=== PATIENT | male | born 1940 | race Caucasian/White ===

== ENCOUNTER 2021-05-15 15:48 | Outpatient (CLI) | payer MEDICARE, SELFPAY ==
[2021-05-15 16:08] LABS: Hematocrit 38.5 % (37.0-46.0); Hemoglobin 12.9 g/dL (12.4-15.3); Mean Corpuscular HGB Conc 33.5 g/dL (32.0-36.0); Mean Corpuscular Volume 92.5 fL (78.0-102.0); Mean Platelet Volume 9.7 fl (8.7-11.0); Platelet Count Result 206 K/mm3 (150-420); Red Blood Count 4.16 M/mm3 (4.70-6.10); Red Cell Distribution Width 12.9 % (11.6-14.4); White Blood Count 9.3 K/mm3 (4.8-10.8)
[2021-05-15 16:46] LABS: Alanine Aminotransferase 31 U/L (16-63); Albumin Level 4.2 g/dL (3.4-5.0); Alkaline Phosphatase 79 U/L (46-116); Anion Gap 12 mmol/L (8-16); Aspartate Amino Transferase 17 U/L (15-37); Bilirubin,Total 0.3 mg/dL (0.00-1.00); Blood Urea Nitrogen 46 mg/dL (7-18); Calcium 9.4 mg/dL (8.5-10.1); Carbon Dioxide 24 mmol/L (21-32); Chloride 106 mmol/L (98-108); Cholesterol 248 mg/dL (0-200); Estimated Glomerular Filt Rate 44; Glucose 114 mg/dL (70-99); HDL Direct 39 mg/dL (40-60); LDL Cholesterol Calculated 151 mg/dL (<130); Osmolality Calculated 306 mOsm/kg (285-295); Potassium 4.4 mmol/L (3.5-5.1); Prostate Specific Antigen 4.8 ng/mL (< OR = 4.0); Sodium 142 mmol/L (136-145); Total Protein 6.9 g/dL (6.4-8.2); Triglycerides 291 mg/dL (0-150)
== END 2021-05-15 15:49 | disposition home or self-care (01) ==
LOC: CHSLAB 15:55
PROVIDERS: PCP Family Medicine; Visit Provider Family Medicine
DX: E11.9 Type 2 diabetes mellitus without complications (principal); I10 Essential (primary) hypertension; R35.1 Nocturia
CPT/HCPCS: 36415; 80053; 80061; 83036; 84153; 85027; G0103

== ENCOUNTER 2023-11-20 11:46 | Outpatient (NON) | payer MEDICARE, SELFPAY ==
[2023-11-20 12:11] LABS: Appearance Urine Cloudy (Clear); Bilirubin Urine Negative (Negative); Blood Urine 3+ (Negative); Color Urine Yellow (Yellow); Glucose Urine UA Negative (Negative); Ketones Urine Negative (Negative); Leukocyte Esterase Ur Trace (Negative); Nitrate Urine Negative (Negative); Protein Urine 3+ (Negative); Specific Grav Ur >= 1.030 (1.010-1.020); Urobilinogen Urine 0.2 mg/dL (0.2-1.0)
[2023-11-20 12:18] LABS: Add Urine Microscopic? YES
[2023-11-20 12:19] LABS: Bacteria Urine 1+ /hpf; RBC Urine 51-75 /hpf (0-2); Squamous Epithelial Cell Urine Rare /hpf (Few); WBC Urine 0-3 /hpf (0-3)
== END 2023-11-20 11:47 | disposition home or self-care (01) ==
PROVIDERS: Visit Provider Nurse Practitioner Family
DX: R39.9 Unspecified symptoms and signs involving the genitourinary system (principal)
CPT/HCPCS: 81001; 87086

== ENCOUNTER 2023-11-25 12:42 | Outpatient (CLI) | payer MEDICARE, SELFPAY ==
--- NOTE | ~2023-11-25 | CT_ITS ---
Non-contrast CT scan of the Abdomen and Pelvis Clinical indication: Kidney stones Technique: 2.5 mm axial scans were obtained through the abdomen and pelvis without intravenous or or al contrast. Dose reduction technique was used on this scan by utilizing automated exposure control a nd iterative reconstruction technique. The dose-length product (DLP) was 500.11 mGy-cm. Findings: Images through the lung bases reveal 5 mm right middle lobe pulmonary nodule. There is no evidence of renal or ureteral calculi. The kidneys and the ureters are nondilated. Left r enal cyst present. The liver, spleen, pancreas, gallbladder, and adrenals appear normal. There are atherosclerotic calci fications of the aorta. There is no evidence of bowel obstruction. Images through the pelvis were performed. There is no evidence of ascites or lymphadenopathy. Numerou s layering urinary bladder stones are present. Prostate gland is enlarged. Small fat-containing right -sided inguinal hernia noted. Impression: Numerous urinary bladder stones. No renal or ureteral stone. No hydronephrosis. Enlarged prostate gland. Small fat-containing right inguinal hernia. Reviewed, dictated and finalized at location . Impression: Numerous urinary bladder stones. No renal or ureteral stone. No hydronephrosis. Enlarged prostate gland. Small fat-containing right inguinal hernia.
== END 2023-11-25 12:43 | disposition home or self-care (01) ==
LOC: CHSIMG 12:44
PROVIDERS: PCP Family Medicine; Visit Provider Nurse Practitioner Family
DX: N20.0 Calculus of kidney (principal); R39.9 Unspecified symptoms and signs involving the genitourinary system; N21.0 Calculus in bladder; N40.0 Benign prostatic hyperplasia without lower urinary tract symptoms; K40.90 Unilateral inguinal hernia, without obstruction or gangrene, not specified as recurrent
CPT/HCPCS: 74176

== ENCOUNTER 2024-01-02 09:10 | Emergency (ER) | payer MEDICARE, SELFPAY ==
[2024-01-02 09:10] VITALS: BP 152/67; PULSE 94; RESP 16; TEMP 36.7; O2SAT 95
--- NOTE | 2024-01-02 09:29 | ED.MALEGU ---
HPI - Male Genitourinary General Chief complaint: Urogenital-Male Stated complaint: urinary symptoms Time Seen by Provider: 01/02/24 09:19 Source: patient Mode of arrival: ambulatory Limitations: no limitations History of Present Illness HPI Narrative: 83-year-old male with a history of hypertension, dyslipidemia, diabetes mellitus, CKD, BPH, passage of a kidney stone on 11/19/2023 presents to the ER with a 3 day history of -- dysuria without any hematuria. he had similar stones after passing a kidney stone -- Lack of good urinary stream. The patient is dribbling urine. In addition he has received precipitancy, hesitancy and increased frequency of micturition. no fever or chills. No back pain. No abdominal pain. the patient had a CT of the abdomen and pelvis on 11/26/2023 which revealed multiple bladder stones with prostate enlargement. MD Complaint: dysuria Onset (ago): day(s) ( Three days) Duration: intermittent Quality: burning Relieving factors: none Exacerbating factors: none Associated symptoms: Reports denies other symptoms Related Data Allergies Allergy/AdvReac Type Severity Reaction Status Date / Time No Known Allergies Allergy Mild Verified 01/02/24 09:15 Review of Systems Review of Systems: All systems reviewed & are unremarkable except as noted in HPI and below Constitutional: Constitutional: Reports as per HPI and Reports no additional constitutional complaints Eyes: Eyes: Reports as per HPI and Reports no additional eye complaints ENT: Reports system reviewed and no additional complaints, except as documented and Reports as per HPI Cardiovascular: Cardiovascular: Reports as per HPI and Reports no additional cardiovascular complaints Respiratory: Respiratory: Reports as per HPI and Reports no additional respiratory complaints Gastrointestinal: Gastrointestinal: Reports as per HPI and Reports no additional gastrointestinal complaints Genitourinary: Genitourinary: Reports no additional male genitourinary complaints, Reports dysuria, Reports urinary frequency and Reports urinary incontinence Musculoskeletal: Musculoskeletal: Reports no additional musculoskeletal complaints and Reports as per HPI Integumentary/Breasts: Skin/Breast: Reports system reviewed and no additional complaints, except as docu and Reports as per HPI Neurologic: Reports system reviewed and no additional complaints, except as documented and Reports as per HPI Psychiatric: Psychiatric: Reports no additional psychiatric complaints and Reports as per HPI Endocrine: Endocrine: Reports no additional endocrine complaints and Reports as per HPI Hematologic/Lymphatic: Hematologic/Lymphatic: Reports no additional hematologic/lymphatic complaints and Reports as per HPI Allergic/Immunologic: Allergic/Immunologic: Reports no additional allergic/immunologic complaints and Reports as per HPI PMFSH Past Medical History Medical History (Updated 01/02/24 @ 10:54 by Dany De Anda MD) Chronic kidney disease, stage 3a Diabetes mellitus Dyslipidemia History of BPH Surgical History Surgical History History of ankle surgery Right - 1988 Family History Family History Father Family history of congestive heart failure, Onset Age: 63 Social History Social History Smoking status: Former smoker Second hand tobacco smoke exposure: No Smoking end date: 08/18/77 Alcohol intake: current Drinks per week: 2 Substance use: never Substance use type: does not use Living arrangements: alone Occupation/Education: retired Gender identity (if verbalized by the patient): Male Spiritual care concerns: Yes (Sabianism) Agree to blood products: Yes Exam Const: General: healthy appearing and no acute distress Nutritional Appearance: well nourished Limitations: no l
--- NOTE | 2024-01-02 09:37 | ECG_ITS ---
SEE SCANNED COPY FOR CONFIRMED REPORT MTDD
[2024-01-02 09:41] LABS: Appearance Urine Sl Cloudy (Clear); Bilirubin Urine Negative (Negative); Blood Urine 3+ (Negative); Color Urine Yellow (Yellow); Glucose Urine UA Negative (Negative); Ketones Urine Negative (Negative); Leukocyte Esterase Ur 1+ LEU/UL (Negative); Nitrate Urine Negative (Negative); Protein Urine 3+ (Negative); Specific Grav Ur >= 1.030 (1.010-1.020); Urobilinogen Urine 0.2 mg/dL (0.2-1.0)
[2024-01-02 09:46] LABS: Basophils Absolute Auto 0.04 K/mm3 (0.00-0.10); Basophils Percent Auto 0.5 % (0.0-1.0); Eosinophils Percent Auto 3.7 % (1.0-6.0); Hematocrit 36.3 % (37.0-46.0); Hemoglobin 12.1 g/dL (12.4-15.3); Immature Granulocyte Absolute 0.03 K/mm3 (0.00-0.00); Immature Granulocyte Percent A 0.4 % (0.0-0.0); Lymphocytes Absolute Auto 0.97 K/mm3 (1.10-4.50); Mean Corpuscular HGB Conc 33.3 g/dL (32-36); Mean Corpuscular Hemoglobin 31.9 pg (27.0-31.0); Mean Corpuscular Volume 95.8 fL (78.0-102.0); Mean Platelet Volume 9.7 fl (8.7-11.0); Monocytes Absolute Auto 0.68 K/mm3 (0.10-0.90); Monocytes Percent Auto 8.4 % (2.0-11.0); Neutrophils Absolute Auto 6.07 K/mm3 (1.70-7.20); Platelet Count Result 182 K/mm3 (150-420); Red Blood Count 3.79 M/mm3 (4.70-6.10); Red Cell Distribution Width 13.6 % (11.6-14.4); White Blood Count 8.1 K/mm3 (4.8-10.8)
[2024-01-02 09:51] LABS: Add Urine Microscopic? YES; Amorphous Sediment Urine Moderate; Bacteria Urine 1+ /hpf; RBC Urine 21-50 /hpf (0-2)
[2024-01-02 10:00] VITALS: BP 143/75; PULSE 85; RESP 17; O2SAT 98
[2024-01-02 10:13] LABS: Alanine Aminotransferase 30 U/L (16-63); Albumin Level 3.7 g/dL (3.4-5.0); Alkaline Phosphatase 56 U/L (46-116); Anion Gap 9 mmol/L (4-12); Aspartate Amino Transferase 22 U/L (15-37); Bilirubin,Total 0.7 mg/dL (0.00-1.00); Blood Urea Nitrogen 47 mg/dL (7-18); Calcium 8.8 mg/dL (8.5-10.1); Carbon Dioxide 27 mmol/L (21-32); Chloride 107 mmol/L (98-108); Estimated CRCL calculation 29 ml/min; Estimated Glomerular Filt Rate 39; Glucose 128 mg/dL (70-99); Osmolality Calculated 310 mOsm/kg (285-295); Potassium 4.6 mmol/L (3.5-5.1); Sodium 143 mmol/L (136-145); Total Protein 6.7 g/dL (6.4-8.2)
[2024-01-02 10:14] LABS: Troponin I 8.3 ng/L (0.00-60.4)
[2024-01-02 10:56] VITALS: BP 144/73; PULSE 80; RESP 16; O2SAT 96
[2024-01-02 10:59] VITALS: BP 144/73; PULSE 80; RESP 16; TEMP 36.7; O2SAT 96
--- NOTE | 2024-01-04 13:54 | PC.NURSE ---
urine culture reviewed , no growth noted
== END 2024-01-02 10:59 | disposition home or self-care (01) ==
PROVIDERS: Emergency Provider Internal Medicine Critical Care Medicine; PCP Family Medicine
DX: N30.01 Acute cystitis with hematuria (principal); R97.20 Elevated prostate specific antigen [PSA]; I12.9 Hypertensive chronic kidney disease with stage 1 through stage 4 chronic kidney disease, or unspecified chronic kidney disease; E11.22 Type 2 diabetes mellitus with diabetic chronic kidney disease; N18.31 Chronic kidney disease, stage 3a; E78.5 Hyperlipidemia, unspecified; N40.0 Benign prostatic hyperplasia without lower urinary tract symptoms; Z87.891 Personal history of nicotine dependence
CPT/HCPCS: 36415; 80053; 81001; 84153; 84443; 84484; 85025; 87086; 93005; 99284

== ENCOUNTER 2024-02-25 10:40 | Emergency (ER) | payer MEDICARE, SELFPAY ==
[2024-02-25 10:40] VITALS: BP 153/83; PULSE 94; RESP 20; TEMP 37.2; O2SAT 98
--- NOTE | 2024-02-25 10:52 | ED.MALEGU ---
HPI - Male Genitourinary General Chief complaint: Urogenital-Male Stated complaint: URINARY PROBLEMS Time Seen by Provider: 02/25/24 10:52 Source: patient Mode of arrival: ambulatory Limitations: no limitations History of Present Illness HPI Narrative: 83-year-old male with a history of hypertension, dyslipidemia, diabetes mellitus, kidney stones, CKD, BPH was seen on 11/26/2023 for dysuria. He was noted to have urinary tract infection. CT of the abdomen and pelvis revealed multiple bladder stones without any kidney stones, BPH and fat containing right inguinal hernia. he was treated with Cipro. He presents to the ER with a 3 day history of -- increased frequency of micturition -- dysuria no fever or chills. No back pain. No suprapubic pain MD Complaint: dysuria Onset (ago): day(s) ( 3 days) Duration: intermittent Location: penis Quality: burning Relieving factors: none Exacerbating factors: none Associated symptoms: Reports denies other symptoms Related Data Allergies Allergy/AdvReac Type Severity Reaction Status Date / Time No Known Allergies Allergy Mild Verified 01/07/24 07:20 Review of Systems Review of Systems: All systems reviewed & are unremarkable except as noted in HPI and below Constitutional: Constitutional: Reports as per HPI and Reports no additional constitutional complaints Eyes: Eyes: Reports as per HPI and Reports no additional eye complaints ENT: Reports system reviewed and no additional complaints, except as documented and Reports as per HPI Cardiovascular: Cardiovascular: Reports as per HPI and Reports no additional cardiovascular complaints Respiratory: Respiratory: Reports as per HPI and Reports no additional respiratory complaints Gastrointestinal: Gastrointestinal: Reports as per HPI and Reports no additional gastrointestinal complaints Genitourinary: Genitourinary: Reports no additional male genitourinary complaints, Reports as per HPI and Reports dysuria Musculoskeletal: Musculoskeletal: Reports no additional musculoskeletal complaints and Reports as per HPI Integumentary/Breasts: Skin/Breast: Reports system reviewed and no additional complaints, except as docu and Reports as per HPI Neurologic: Reports system reviewed and no additional complaints, except as documented and Reports as per HPI Psychiatric: Psychiatric: Reports no additional psychiatric complaints and Reports as per HPI Endocrine: Endocrine: Reports no additional endocrine complaints and Reports as per HPI Hematologic/Lymphatic: Hematologic/Lymphatic: Reports no additional hematologic/lymphatic complaints and Reports as per HPI Allergic/Immunologic: Allergic/Immunologic: Reports no additional allergic/immunologic complaints and Reports as per HPI PMFSH Past Medical History Medical History Chronic kidney disease, stage 3a Diabetes mellitus Dyslipidemia History of BPH Surgical History Surgical History History of ankle surgery Right - 1988 Family History Family History Father Family history of congestive heart failure, Onset Age: 63 Social History Social History Smoking status: Former smoker Second hand tobacco smoke exposure: No Smoking end date: 08/18/77 Alcohol intake: current Drinks per week: 2 Substance use: never Substance use type: does not use Living arrangements: alone Occupation/Education: retired Gender identity (if verbalized by the patient): Male Spiritual care concerns: Yes (Voodoo) Agree to blood products: Yes Exam Narrative: afebrile Const: General: no acute distress Limitations: no limitations HENMT: Head: normal to inspection Face/Nose/Sinus: Normal external nose present Face and sinus: normal facial exam Mouth: Yes Norm
[2024-02-25 11:19] LABS: Appearance Urine Sl Cloudy (Clear); Bilirubin Urine Negative (Negative); Blood Urine 1+ (Negative); Color Urine Light Yellow (Yellow); Glucose Urine UA Negative (Negative); Ketones Urine Negative (Negative); Leukocyte Esterase Ur Trace LEU/UL (Negative); Nitrate Urine Negative (Negative); Protein Urine 2+ (Negative); Specific Grav Ur 1.025 (1.010-1.020); Urobilinogen Urine 0.2 mg/dL (0.2-1.0)
[2024-02-25 11:30] LABS: Add Urine Microscopic? YES; RBC Urine 21-50 /hpf (0-2); WBC Urine 16-20 /hpf (0-3)
[2024-02-25 11:31] LABS: Amorphous Sediment Urine Heavy; Bacteria Urine Trace /hpf; Mucus Urine Few /lpf; Squamous Epithelial Cell Urine None Seen /hpf (Few)
[2024-02-25 12:09] VITALS: BP 143/74; PULSE 74; RESP 20; TEMP 37; O2SAT 98
--- NOTE | 2024-02-27 13:54 | PC.NURSE ---
Final urine culture report: no growth, no further action or treatment needed.
== END 2024-02-25 12:09 | disposition home or self-care (01) ==
PROVIDERS: Emergency Provider Internal Medicine Critical Care Medicine; PCP Family Medicine
DX: N39.0 Urinary tract infection, site not specified (principal); N21.0 Calculus in bladder; R97.20 Elevated prostate specific antigen [PSA]; E78.5 Hyperlipidemia, unspecified; I12.9 Hypertensive chronic kidney disease with stage 1 through stage 4 chronic kidney disease, or unspecified chronic kidney disease; E11.22 Type 2 diabetes mellitus with diabetic chronic kidney disease; N18.31 Chronic kidney disease, stage 3a; Z87.891 Personal history of nicotine dependence
CPT/HCPCS: 81001; 87086; 99283

== ENCOUNTER 2024-02-28 07:18 | Emergency (ER) | payer MEDICARE, SELFPAY ==
[2024-02-28 07:25] VITALS: BP 132/69; PULSE 108; RESP 20; TEMP 36.4; O2SAT 95
--- NOTE | 2024-02-28 07:27 | ED.MALEGU ---
HPI - Male Genitourinary General Chief complaint: Urogenital-Male Stated complaint: urinary frequency; dysuria Time Seen by Provider: 02/28/24 07:27 Source: patient Mode of arrival: ambulatory Limitations: no limitations History of Present Illness HPI Narrative: 83-year-old male with a history of hypertension, dyslipidemia, CKD, BPH, kidney stones was seen on 11/26/2023 for dysuria /UTI and prescribed Cipro. He return to the ER on 02/25/2024 with urinary tract infection and was treated with Levaquin. He presents to the ER today with -- ongoing increased frequency of micturition. patient has to get up every half an hour to pass urine. He was unable to sleep last night -- dysuria without any hematuria no fever or chills MD Complaint: dysuria Onset (ago): day(s) ( 7 days) Duration: constant Severity: mild Quality: burning Relieving factors: none Exacerbating factors: none Associated symptoms: Reports denies other symptoms Related Data Allergies Allergy/AdvReac Type Severity Reaction Status Date / Time No Known Allergies Allergy Mild Verified 01/07/24 07:20 Review of Systems Review of Systems: All systems reviewed & are unremarkable except as noted in HPI and below Constitutional: Constitutional: Reports as per HPI and Reports no additional constitutional complaints Eyes: Eyes: Reports as per HPI and Reports no additional eye complaints ENT: Reports system reviewed and no additional complaints, except as documented and Reports as per HPI Cardiovascular: Cardiovascular: Reports as per HPI and Reports no additional cardiovascular complaints Respiratory: Respiratory: Reports as per HPI and Reports no additional respiratory complaints Gastrointestinal: Gastrointestinal: Reports as per HPI and Reports no additional gastrointestinal complaints Genitourinary: Genitourinary: Reports no additional male genitourinary complaints and Reports as per HPI Musculoskeletal: Musculoskeletal: Reports no additional musculoskeletal complaints and Reports as per HPI Integumentary/Breasts: Skin/Breast: Reports system reviewed and no additional complaints, except as docu and Reports as per HPI Neurologic: Reports system reviewed and no additional complaints, except as documented and Reports as per HPI Psychiatric: Psychiatric: Reports no additional psychiatric complaints and Reports as per HPI Endocrine: Endocrine: Reports no additional endocrine complaints and Reports as per HPI Hematologic/Lymphatic: Hematologic/Lymphatic: Reports no additional hematologic/lymphatic complaints and Reports as per HPI Allergic/Immunologic: Allergic/Immunologic: Reports no additional allergic/immunologic complaints and Reports as per HPI PMFSH Past Medical History Medical History Chronic kidney disease, stage 3a Diabetes mellitus Dyslipidemia History of BPH Surgical History Surgical History History of ankle surgery Right - 1988 Family History Family History Father Family history of congestive heart failure, Onset Age: 63 Social History Social History Smoking status: Former smoker Second hand tobacco smoke exposure: No Smoking end date: 08/18/77 Alcohol intake: current Drinks per week: 2 Substance use: never Substance use type: does not use Living arrangements: alone Occupation/Education: retired Gender identity (if verbalized by the patient): Male Spiritual care concerns: Yes (Judaism) Agree to blood products: Yes Exam Narrative: afebrile Const: General: healthy appearing and no acute distress Nutritional Appearance: well nourished Limitations: no limitations HENMT: Head: normal to inspection Face/Nose/Sinus: Normal external nose present Face and sinus: normal facial exam Mo
[2024-02-28 07:53] LABS: Appearance Urine Clear (Clear); Bilirubin Urine Negative (Negative); Blood Urine 2+ (Negative); Color Urine Yellow (Yellow); Glucose Urine UA Negative (Negative); Ketones Urine Negative (Negative); Leukocyte Esterase Ur 1+ LEU/UL (Negative); Nitrate Urine Negative (Negative); Protein Urine 3+ (Negative); Specific Grav Ur >= 1.030 (1.010-1.020); Urobilinogen Urine 0.2 mg/dL (0.2-1.0)
[2024-02-28 07:59] LABS: Add Urine Microscopic? YES; Amorphous Sediment Urine Heavy; Squamous Epithelial Cell Urine Occasional /hpf (Few)
[2024-02-28 08:00] LABS: Bacteria Urine 3+ /hpf
[2024-02-28 08:13] LABS: Basophils Absolute Auto 0.05 K/mm3 (0.00-0.10); Basophils Percent Auto 0.7 % (0.0-1.0); Eosinophils Absolute Auto 0.28 K/mm3 (0.02-0.50); Eosinophils Percent Auto 3.8 % (1.0-6.0); Hematocrit 38.2 % (37.0-46.0); Hemoglobin 12.6 g/dL (12.4-15.3); Immature Granulocyte Absolute 0.04 K/mm3 (0.00-0.00); Immature Granulocyte Percent A 0.5 % (0.0-0.0); Lymphocytes Absolute Auto 0.89 K/mm3 (1.10-4.50); Mean Corpuscular Hemoglobin 31.1 pg (27.0-31.0); Mean Corpuscular Volume 94.3 fL (78.0-102.0); Mean Platelet Volume 9.4 fl (8.7-11.0); Monocytes Absolute Auto 0.61 K/mm3 (0.10-0.90); Monocytes Percent Auto 8.2 % (2.0-11.0); Neutrophils Absolute Auto 5.56 K/mm3 (1.70-7.20); Neutrophils Percent Auto 74.8 % (50.0-70.0); Platelet Count Result 187 K/mm3 (150-420); Red Blood Count 4.05 M/mm3 (4.70-6.10); White Blood Count 7.4 K/mm3 (4.8-10.8)
[2024-02-28 08:29] LABS: Alanine Aminotransferase 43 U/L (16-63); Albumin Level 3.7 g/dL (3.4-5.0); Alkaline Phosphatase 65 U/L (46-116); Anion Gap 12 mmol/L (4-12); Aspartate Amino Transferase 22 U/L (15-37); Bilirubin,Total 0.9 mg/dL (0.00-1.00); Blood Urea Nitrogen 46 mg/dL (7-18); Carbon Dioxide 23 mmol/L (21-32); Chloride 108 mmol/L (98-108); Estimated CRCL calculation 27 ml/min; Estimated Glomerular Filt Rate 36; Glucose 161 mg/dL (70-99); Osmolality Calculated 310 mOsm/kg (285-295); Potassium 3.9 mmol/L (3.5-5.1); Sodium 143 mmol/L (136-145)
[2024-02-28] MEDS: LACTATED RINGERS 1,000 ML 999 ML IV CONT (09:22)
[2024-02-28 10:09] VITALS: BP 151/77; PULSE 114; RESP 18; TEMP 36.5; O2SAT 98
[2024-02-28 10:17] VITALS: BP 147/72; PULSE 74; RESP 20; TEMP 36.9; O2SAT 98
--- NOTE | 2024-03-01 12:57 | PC.NURSE ---
FINAL URINE CULTURE REPORT: NO GROWTH, NO FURTHER ACTION OR TREATMENT NEEDED AT THIS TIME.
== END 2024-02-28 10:17 | disposition home or self-care (01) ==
PROVIDERS: Emergency Provider Internal Medicine Critical Care Medicine; PCP Family Medicine
DX: N40.1 Benign prostatic hyperplasia with lower urinary tract symptoms (principal); N17.9 Acute kidney failure, unspecified; I12.9 Hypertensive chronic kidney disease with stage 1 through stage 4 chronic kidney disease, or unspecified chronic kidney disease; E11.22 Type 2 diabetes mellitus with diabetic chronic kidney disease; N18.31 Chronic kidney disease, stage 3a; E78.5 Hyperlipidemia, unspecified; Z87.891 Personal history of nicotine dependence
CPT/HCPCS: 36415; 80053; 81001; 83605; 85025; 87086; 96360; 99283; J7120

== ENCOUNTER 2024-03-02 10:26 | Outpatient (CLI) | payer MEDICARE, SELFPAY ==
[2024-03-02 11:38] LABS: Alanine Aminotransferase 33 U/L (16-63); Albumin Level 3.7 g/dL (3.4-5.0); Alkaline Phosphatase 88 U/L (46-116); Anion Gap 7 mmol/L (4-12); Aspartate Amino Transferase 25 U/L (15-37); Bilirubin,Total 0.7 mg/dL (0.00-1.00); Blood Urea Nitrogen 42 mg/dL (7-18); Calcium 9.2 mg/dL (8.5-10.1); Carbon Dioxide 25 mmol/L (21-32); Chloride 107 mmol/L (98-108); Estimated Glomerular Filt Rate 53; Glucose 100 mg/dL (70-99); Osmolality Calculated 298 mOsm/kg (285-295); Potassium 5.1 mmol/L (3.5-5.1); Prostate Specific Antigen 4.7 ng/mL (< OR = 4.0); Sodium 139 mmol/L (136-145); Total Protein 6.4 g/dL (6.4-8.2)
== END 2024-03-02 10:27 | disposition home or self-care (01) ==
LOC: CHSLAB 10:28
PROVIDERS: PCP Family Medicine; Visit Provider Family Medicine
DX: R35.1 Nocturia (principal); N18.30 Chronic kidney disease, stage 3 unspecified; Z12.5 Encounter for screening for malignant neoplasm of prostate
CPT/HCPCS: 36415; 80053; 84153; G0103

== ENCOUNTER 2024-04-15 13:45 | Outpatient (NON) | payer MEDICARE, SELFPAY | END 2024-04-15 13:46 | disposition home or self-care (01) | LOC: CHSLAB 13:48 | PROVIDERS: PCP Family Medicine; Visit Provider Family Medicine | DX: N39.0 Urinary tract infection, site not specified (principal) | CPT/HCPCS: 87086 ==

== ENCOUNTER 2024-07-08 10:22 | Outpatient (NON) | payer MEDICARE, SELFPAY | END 2024-07-08 10:23 | disposition home or self-care (01) | LOC: CHSLAB 10:24 | PROVIDERS: PCP Family Medicine; Visit Provider Family Medicine | DX: N20.0 Calculus of kidney (principal) | CPT/HCPCS: 82365; 88300 ==

== ENCOUNTER 2024-09-09 17:57 | Emergency (ER) | payer MEDICARE, SELFPAY ==
--- NOTE | ~2024-09-09 | XR_ITS ---
HISTORY: left hip injury/FALL COMPARISON: None TECHNIQUE: 2 views of the left hip along with an AP view of the pelvis FINDINGS: No acute fracture or dislocation is identified. Superior lateral sclerosis of the femoral acetabular joint space is present consistent with osteoarth ritis. Joint space narrowing detected within the bilateral SI joints with sclerosis. Degenerative disease within the lower lumbar spine. Fecal stasis within the colon. Normal mineralization. IMPRESSION: Degenerative disease without acute fracture or dislocation Reviewed, dictated and finalized at location [facility]. [employer]
[2024-09-09 17:57] VITALS: BP 184/95; PULSE 90; RESP 16; TEMP 36.6; O2SAT 98
--- NOTE | 2024-09-09 18:44 | ED.FALL ---
HPI - Fall General Chief Complaint: Fall Stated Complaint: Fall; left hip pain Time Seen by Provider: 09/09/24 18:10 Source: patient Mode of arrival: ambulatory Limitations: no limitations History of Present Illness HPI Narrative: this is 84-year-old male who presents after he fell in his garage at home earlier and landed on his left hip area has pain in the left hip but has good range of motion and ambulatory otherwise no other injuries. complaint: fall Onset (ago): hour(s) Fall from: standing Fall witnessed: no Place fall occurred: home Loss of consciousness: none Prolonged down time: no Symptoms prior to fall: none Context: tripped/slipped Related Data Allergies Allergy/AdvReac Type Severity Reaction Status Date / Time No Known Allergies Allergy Mild Verified 09/09/24 18:19 Review of Systems Review of Systems: All systems reviewed & are unremarkable except as noted in HPI and below PMFSH Past Medical History Medical History Dyslipidemia Diabetes mellitus History of BPH Chronic kidney disease, stage 3a Surgical History Surgical History History of ankle surgery Right - 1988 Family History Family History Father Family history of congestive heart failure, Onset Age: 63 Social History Social History Smoking status: Former smoker Second hand tobacco smoke exposure: No Smoking end date: 08/18/77 Alcohol intake: current Drinks per week: 2 Substance use: never Substance use type: does not use Living arrangements: alone Occupation/Education: retired Gender identity (if verbalized by the patient): Male Spiritual care concerns: Yes (Sikh) Agree to blood products: Yes Exam Const: General: healthy appearing and no acute distress Nutritional Appearance: well nourished Orientation/consciousness: patient oriented x3 Limitations: no limitations Neck: Neck: normal visual inspection and no lymphadenopathy Chest: Chest palpation & inspection: normal inspection of the chest Resp: Effort & Inspection: normal respiratory effort Auscultation: clear to auscultation bilaterally Cardio: Rate: regular rate Rhythm: regular rhythm GI: GI Palp: Yes Soft to palpation Auscultation: normal bowel sounds Urinary Catheter: Urinary Catheter: patent and draining Skin: General skin exam: normal color Rashes: no rashes Wounds: no wounds Neuro: General: patient oriented x3, moves all extremities, no meningeal signs and no focal motor deficits Extrem: Other: Tender left hip area with palpation Course Course Emergency Course: patient declined pain medication, x-ray performed and reviewed. Vital Signs Vital signs: Vital Signs Temperature 36.6 C 09/09/24 17:57 Pulse Rate 90 09/09/24 17:57 Respiratory Rate 16 09/09/24 17:57 Blood Pressure 184/95 H 09/09/24 17:57 Pulse Oximetry 98 09/09/24 17:57 Oxygen Delivery Room Air 09/09/24 17:57 Temperature 36.6 C 09/09/24 17:57 Pulse Rate 90 09/09/24 17:57 Respiratory Rate 16 09/09/24 17:57 Blood Pressure 184/95 H 09/09/24 17:57 Pulse Oximetry 98 09/09/24 17:57 Oxygen Delivery Room Air 09/09/24 17:57 Critical Care Time Critical Care Time Critical Care Time: No Discharge Plan Discharge Clinical Impression: Muscle strain of left hip Qualifiers: Encounter type: initial encounter Qualified Code(s): S76.012A - Strain of muscle, fascia and tendon of left hip, initial encounter Patient Disposition: Home, Self-Care Condition: Stable Instructions: Antibiotic Form, Muscle Strain (ED) Patient Language: Slovenian Prescriptions: No Action lisinopril 30 mg tablet See Rx Instructions .ROUTE .COMPLEX Qty: 90 3RF Dose Instruction: TAKE 1 TABLET DAILY Rx Instructions: TAKE 1 TABLET DAILY atorvastatin 40 mg tablet See Rx Instructions .ROUTE .COMPLEX Qty: 90 3RF Dose Instruction: TAKE 1 TABLET DAILY Rx Instructions: TAKE 1 TABLET DAILY potassium citrate 15 mEq tablet extended release 15 meq PO BID Qty: 180 0RF finasteride 5 mg tablet 5 mg PO DAILY Qty: 90 3RF Follow-up/Referrals: Amando Duenas DO [Primary Care Provider] -
[2024-09-09 19:35] VITALS: BP 148/85; PULSE 88; RESP 20; O2SAT 96
== END 2024-09-09 19:35 | disposition home or self-care (01) ==
PROVIDERS: Emergency Provider Emergency Medicine; PCP Family Medicine
DX: S76.012A Strain of muscle, fascia and tendon of left hip, initial encounter (principal); E11.22 Type 2 diabetes mellitus with diabetic chronic kidney disease; N18.31 Chronic kidney disease, stage 3a; Z87.891 Personal history of nicotine dependence; W01.0XXA Fall on same level from slipping, tripping and stumbling without subsequent striking against object, initial encounter; Y92.008 Other place in unspecified non-institutional (private) residence as the place of occurrence of the external cause
CPT/HCPCS: 73502; 99283

== ENCOUNTER 2025-06-13 08:08 | Outpatient (CLI) | payer MEDICARE, SELFPAY ==
[2025-06-13 08:22] LABS: Hematocrit 40.6 % (37.0-46.0); Hemoglobin 13.4 g/dL (12.4-15.3); Immature Granulocyte Percent A 0.3 % (0.0-0.0); Lymphocytes Absolute Auto 1.03 K/mm3 (1.10-4.50); Mean Corpuscular HGB Conc 33.0 g/dL (32-36); Mean Corpuscular Hemoglobin 31.8 pg (27.0-31.0); Mean Corpuscular Volume 96.2 fL (78.0-102.0); Nucleated Red Blood Cells Absolute Auto 0.00 K/mm3 (0.00-0.00); Nucleated Red Blood Cells Perc 0.0 % (0-0.0); Platelet Count Result 193 K/mm3 (150-420); Red Blood Count 4.22 M/mm3 (4.70-6.10); White Blood Count 7.7 K/mm3 (4.8-10.8)
[2025-06-13 10:01] LABS: Hemoglobin A1C 6.3 % (<5.7)
[2025-06-13 10:07] LABS: MALB Creatinine Ratio 42.6 mg/g (0-30)
[2025-06-13 10:10] LABS: Prostate Specific Antigen 1.8 ng/mL (< OR = 4.0)
[2025-06-13 11:06] LABS: Anion Gap 9 mmol/L (4-12); Blood Urea Nitrogen 30 mg/dL (9-20); Carbon Dioxide 25 mmol/L (22-30); Chloride 107 mmol/L (98-107); Potassium 4.6 mmol/L (3.4-5.0); Sodium 141 mmol/L (137-145)
[2025-06-13 11:07] LABS: Alanine Aminotransferase 27 U/L (6-50); Albumin Level 4.3 g/dL (3.5-5.1); Aspartate Amino Transferase 29 U/L (17-59); Bilirubin,Total 0.9 mg/dL (0.2-1.3); Calcium 9.4 mg/dL (8.4-10.2); Cholesterol 143 mg/dL (0-200); Estimated Glomerular Filt Rate 47; Glucose 128 mg/dL (65-110); Osmolality Calculated 300 mOsm/kg (285-295); Total Protein 6.7 g/dL (6.3-8.2); Triglycerides 144 mg/dL (<150)
[2025-06-13 11:08] LABS: Alkaline Phosphatase 84 U/L (38-126); HDL Direct 56 mg/dL
== END 2025-06-13 08:09 | disposition home or self-care (01) ==
LOC: CHSLAB 08:08
PROVIDERS: PCP Family Medicine; Visit Provider Family Medicine
DX: I10 Essential (primary) hypertension (principal); R35.1 Nocturia; E11.9 Type 2 diabetes mellitus without complications; Z12.5 Encounter for screening for malignant neoplasm of prostate
CPT/HCPCS: 36415; 80053; 80061; 82043; 83036; 84153; 85025; G0103